=== PATIENT | female | born 1940 | race Caucasian/White ===

== ENCOUNTER 2022-05-22 11:30 | Observation (INO) | payer MEDICARE, SELFPAY ==
[2022-05-22] VITALS (11 sets, daily range): BP systolic 121–165; BP diastolic 60–99; PULSE 75–103; RESP 16–18; TEMP 36.4–37.3; O2SAT 91–96; BMI 29.4; BMI 36.6; BMI 30.1
--- NOTE | 2022-05-22 11:42 | EDS_ITS ---
HPI History of Present Illness Chief Complaint: Confusion Narrative Narrative: Patient presents with generalized weakness and confusion. She normally ambulates without a walker but today she had to use a walker just to barely balance herself, she is also more confused than normal per family, per family she has also been urinating quite a bit. No reported fevers or chills, she denies any symptoms. I can get a basic review of systems from her but not a full review of systems due to her confusion. [facility] Medical History (Updated 05/22/22 @ 15:[address] Jack Kramer MD) DVT (deep venous thrombosis) Hypertension Skin cancer Home Medications atorvastatin 40 mg tablet mg 05/22/22 [History Last Taken Unknown] docusate sodium 100 mg capsule (Colace) 100 mg PO DAILY 05/22/22 [History Last Taken Unknown] ergocalciferol (vitamin D2) 200 mcg/mL (8,000 unit/mL) oral drops 200 mcg PO DAILY 05/22/22 [History Last Taken Unknown] hydrochlorothiazide 12.5 mg capsule 12.5 mg PO DAILY 05/22/22 [History Last Taken Unknown] levothyroxine 88 mcg tablet 88 mcg PO DAILY 05/22/22 [History Last Taken Unknown] ulkstdeghzfv-iddbrdna-mbsayj tablet 1 tab PO DAILY 05/22/22 [History Last Taken Unknown] pantoprazole 40 mg tablet,delayed release mg PO 05/22/22 [History Last Taken Unknown] Allergy/AdvReac Type Severity Reaction Status Date / Time Sulfa (Sulfonamide Allergy NEEDS Verified 05/22/22 11:38 Antibiotics) FOLLOW-UP Family History (Updated 05/22/22 @ 12:09 by Sera Da Silva) Other Cancer Heart disease Surgical History (Updated 05/22/22 @ 12:08 by Sera Da Silva) H/O section H/O: hysterectomy History of cholecystectomy Social History Smoking Status: Never smoker ROS ROS ED ROS Narrative Past medical history: Reviewed Medications: Reviewed Social history: Noncontributory Review of systems: See below, otherwise unable General: No reported fever Cardiovascular: No chest pain Respiratory: She is denying difficulty breathing Gastrointestinal: She denies abdominal pain, no reported diarrhea Genitourinary: Urinary frequency Per EMS report Musculoskeletal: She denies any muscle aches or joint pain Neurological: Confusion but no focal deficit EXAM Physical Exam Narrative Exam Narrative: Physical exam General: Patient appears comfortable Head: Normocephalic, Atraumatic Eyes: Conjunctiva not pale ENT: Slightly dry mucous membranes Neck: Supple, Nontender, No lymphadenopathy Cardiovascular: Regular rate, Regular rhythm Respiratory: No distress, CTA bilaterally Abdomen: Soft, Nontender, Nondistended Back: Nontender, Normal Inspection. Negative for: CVA tenderness Extremities: Nontender, No edema Skin: Normal color, No rash Neurological: Alert to person, she does not know the year, she knows she is in the hospital but does not know which hospital she is in. She does not know which city she is in. No focal deficit. Const Vital Signs: 05/22/22 11:32 05/22/22 11:37 05/22/22 12:42 Temperature 97.6 F L 97.6 F L Temperature Source Temporal Temporal Pulse Rate 91 89 75 Respiratory Rate 17 16 17 Blood Pressure 138/71 H 138/71 H 143/89 H Blood Pressure Mean 93 93 107 Pulse Ox 95 95 95 Oxygen Delivery Method Room Air Room Air Nasal Cannula 05/22/22 12:37 05/22/22 13:37 05/22/22 14:26 Temperature 97.6 F L 97.6 F L 97.6 F L Temperature Source Temporal Temporal Temporal Pulse Rate 83 79 84 Respiratory Rate 18 18 18 Blood Pressure 165/72 H 121/83 H 147/60 H Blood Pressure Mean 103 95 89 Pulse Ox 91 96 95 Oxygen Delivery Method MDM MDM MDM Narrative Medical decision making narrative: A. Problems addressed Patient has weakness, I thought about a urinary tract infection but this is unfounded on urinalysis. I thought about electrolyte abnormalities and anemia but again these are not found. I thought about a possibility of a stroke, initially getting get this history but when the daughter came she tells me that every time she walks she is leaning to the right and she is dragging her right foot I examined the strength in the right foot again and it is similar to the left side and she certainly can hold it up for 5 seconds without dropping. An NIH stroke scale is 1 for confusion but nothing focal. However with her symptoms it may be reasonable to do a TIA work-up inpatient. She may also benefit from physical therapy. At this time daughter says that she is unlikely to be able to function at home so she can barely ambulate and is difficult to transfer. She is also confused and she does not know if she would ask for help every time she needs to go. B. Amount and/or complexity of the data 1. I talked with daughter in the room, CBC CMP read by me as normal. 2. Independent interpretation of test Telemetry: Sinus rhythm with a rate in the 80s and 90s without ectopy 3. I discussed with hospitalist for admission C. Risk of complications and/or morbidity Differential diagnosis: See above Lab Data Labs: Laboratory Results - last 24 hr 05/22/22 05/22/22 05/22/22 12:25 12:57 14:00 WBC 6.4 RBC 4.00 L Hgb 12.0 Hct 38.2 MCV 95.5 MCH 30.0 MCHC 31.4 L RDW Std Deviation 51.7 H RDW Coeff of Nakia 14.8 H Plt Count 196 MPV 11.8 Immature Gran % (Auto) 0.900 Neut % (Auto) 71.1 H Lymph % (Auto) 17.1 L [place] % (Auto) 10.6 H Eos % (Auto) 0.0 Baso % (Auto) 0.3 Absolute Neuts (auto) 4.5 Absolute Lymphs (auto) 1.09 Nucleated RBC % 0 Sodium 135 L Potassium 5.0 Chloride 101 Carbon Dioxide 30.0 Anion Gap 4 L BUN 10 Creatinine 0.96 Estim Creat Clear Calc 58.70 Est GFR (MDRD) Af Amer 72 Est GFR (MDRD) Non-Af 59 L BUN/Creatinine Ratio 10.4 Glucose 119 H Calcium 9.0 Total Bilirubin 0.70 AST 955 H ALT 250 H Alkaline Phosphatase 157 H Total Protein 7.4 Albumin 2.8 L Globulin 4.6 H Albumin/Globulin Ratio 0.6 L Urine Color Yellow Urine Clarity Sl. Cloudy Urine pH 6.5 Ur Specific [place] 1.020 Urine Protein 100 H Urine Glucose (UA) Normal Urine Ketones 5 H Urine Occult Blood 25 H Urine Nitrite Negative Urine Bilirubin Negative Urine Urobilinogen 1 H Ur Leukocyte Esterase Negative Urine RBC 0-5 SEEN Urine WBC 0 SEEN Ur Squamous Epith Cells 5-10 SEEN Urine Bacteria 1+ Urine Mucus 0 SEEN Radiography Diagnostic Testing: Clinical Impression(s) from Imaging Studies Chest X-Ray 05/22/22 12:23 IMPRESSION: No acute abnormality is seen. Electronically Signed: Brian Hagen MD at 12:50 EST , Brain CT 05/22/22 14:46 IMPRESSION: Chronic involutional changes of the brain. Electronically Signed: Brian Hagen MD at 15:11 EST , Chest x-ray interpreted by me as normal EKG Initial EKG: Comments: Sinus rhythm with PACs. Normal AK and QTc intervals. No ischemic changes. Interpreted by emergency doctor Discharge Plan Triage Chief Complaint: Confusion ED Provider: Jack Kramer Dx/Rx/DC Orders Clinical Impression: Weakness, Somnolence, Hypertension Prescriptions: No Action atorvastatin 40 mg Tablet levothyroxine 88 mcg Tablet 88 mcg PO DAILY pantoprazole 40 mg Tablet,Delayed Release (Dr/Ec) PO hydrochlorothiazide 12.5 mg Capsule 12.5 mg PO DAILY docusate sodium [Colace] 100 mg Capsule 100 mg PO DAILY ergocalciferol (vitamin D2) [Vitamin D2] 200 mcg/mL (8,000 unit/mL) Drops 200 mcg PO DAILY Centrum Silver Tablet 1 tab PO DAILY Primary Care Provider: Yoli Gant Referrals: Yoli Gant MD [Primary Care Provider] - Disposition Disposition: Acute Care Hospital [facility]
--- NOTE | 2022-05-22 12:23 | RAD_ITS ---
STUDY: X-RAY CHEST REASON FOR EXAM: Female, 81 years old. Confusion and unsteady gait. TECHNIQUE: Single AP portable view of the chest. COMPARISON: None. FINDINGS: The lungs are clear and expanded. There is no demonstrated pleural abnormality. Normal size heart. Normal mediastinum and duc. Normal visualized pulmonary arteries. There is atherosclerotic tortuosity of the aortic arch and descending thoracic aorta. There are diffuse degenerative changes of the visualized thoracic spine. There is degenerative osteoarthritis of the bilateral shoulders. There is no demonstrated abnormality of the visualized soft tissue structures of the upper abdomen. RAD/Chest 1 View (Portable) IMPRESSION: No acute abnormality is seen. Electronically Signed: Brian Hagen MD at 12:50 EST ,
[2022-05-22 12:49] LABS: ALB/GLOB Ratio 0.6 RATIO (0.9-2.4); AST(SGOT) 955 U/L (15-37); Alanine Aminotransfer ALT/SGPT 250 U/L (13-56); Albumin, Serum 2.8 g/dL (3.2-5.0); Alkaline Phosphatase 157 U/L (45-117); Anion Gap 4 (5-15); BUN 10 mg/dL (7-18); BUN/Creat Ratio 10.4 RATIO (10-20); Chloride 101 mmol/L (98-107); Creatinine, Serum 0.96 mg/dL (0.55-1.02); EST Glomerular Filtration Rate 59 mL/min (>60); Est Glom Filt Rate - Afr Amer 72 mL/min (>60); Globulin 4.6 g/dL (2.2-4.2); Glucose 119 mg/dL (74-106); Protein, Total 7.4 g/dL (6.4-8.2); Sodium Level 135 mmol/L (136-145)
[2022-05-22 13:07] LABS: Absolute Lymphocyte Count 1.09 X10^3/uL (0.83-4.51); Absolute Neutrophil Count 4.5 X10^3/uL (2.0-7.7); Basophil# 0.02 X10^3/uL; Basophil% 0.3 % (0-1); Hematocrit 38.2 % (37-47); Lymphocyte # 1.09 X10^3/ul (0.83-4.51); Lymphocyte % 17.1 % (19-41); Mean Corp Hgb Conc 31.4 g/dL (32-36); Mean Corpuscular Volume 95.5 fL (81-99); Mean Platelet Vol. 11.8 fl (6.2-12.0); Monocyte# 0.68 X10^3/uL; Monocyte% 10.6 % (0-10); NRBC Flagged by Analyzer 0 % (0-5); Neutrophil # 4.54 X10^3/uL (2.7-7.7); Neutrophil % 71.1 % (47-70); Platelet Count 196 K/mm3 (150-450); RBC Distribution Width CV 14.8 % (11.6-14.6); RBC Distribution Width SD 51.7 fl (35.1-43.9); White Blood Count 6.4 K/mm3 (4.4-11.0)
[2022-05-22 14:11] LABS: Mucous, Urine 0 SEEN /hpf (<or=2+); White Blood Cells 0 SEEN /hpf (0-5)
[2022-05-22 14:36] LABS: Color, Urine Yellow (Yellow); Glucose, Dipstick Normal (Normal); Ketone-Dipstick 5 mg/dl (Negative); Leukocyte Esterase-Dipstick Negative /ul (Negative); Nitrite-Dipstick Negative (Negative); Occult Blood-Urine 25 /ul (Negative); Protein-Dipstick 100 mg/dl (Negative); Urine Bilirubin Dipstick Negative (Negative); Urine Clarity Sl. Cloudy (Clear); Urine Urobilinogen 1 mg/dl (Normal); Urine pH 6.5 (5.0 - 8.0)
[2022-05-22 14:45] LABS: Bacteria 1+ /hpf (None Seen); Red Blood Cells-Urine 0-5 SEEN /hpf (0-5); Squamous Epithelial Cells - UA 5-10 SEEN /hpf (5-10)
--- NOTE | 2022-05-22 14:46 | CT_ITS ---
STUDY: CT BRAIN WITHOUT CONTRAST REASON FOR EXAM: Female, 81 years old. ms change RADIATION DOSAGE (If Supplied By Facility): CTDIvol = ( 44.99 ) mGy, DLP = ( 745.49 ) mGycm TECHNIQUE: Transaxial CT imaging of the brain was performed without administration of intravenous contrast material. Individualized dose optimization techniques were used for this CT. COMPARISON: No relevant priors. FINDINGS: Normal soft tissue structures. Normal calvarium. There is moderate cerebral atrophy with widening of the extra-axial spaces and ventricular dilatation. There are areas of decreased attenuation within the white matter tracts of the supratentorial brain, consistent with microvascular disease changes. Normal basal ganglia and thalami. Normal brainstem. Normal cerebellum. There is no intracranial hemorrhage. There are no findings of an acute ischemic infarction. Atherosclerotic calcification of the cavernous portions of the internal carotid arteries and vertebral arteries. Normal visualized paranasal sinuses. CT/Brain/Head without Contrast IMPRESSION: Chronic involutional changes of the brain. Electronically Signed: Brian Hagen MD at 15:11 EST ,
--- NOTE | 2022-05-22 15:57 | PCM.HP.STD ---
HPI - General General Date of Admission: 05/22/22 Date of Service: 05/22/22 HPI Narrative NASREEN MARMOLEJO, is a 81 F with a PMH as outlined who presents via the ED on 05/22/2022 with a complaint of confusion. SHe has just been getting weaker and more confused. She usually ambulates with a walker, but could barely even ambulate. She denied any fever, chills, cough, chest pain, palpitations, dizziness, nausea, vomiting or diarrhea. She had also been urinating frequently. Review of systems was otherwise negative. Vitals were temp of 97.6F, BP of 140/71, Pr of 84 and RR of 18. She was saturating at 92% on room air. CBC was essentially unremarkable as well as BMP. AST was elevated at 955 and ALT at 250 with ALP of 157. Urinalysis did show 1+ bacteria but no leukocyte esterase. CT of the brain showed chronic involutional changes and showed no acute intracranial pathology.CXR showed no acute cardiopulmonary pathology. Patient's other daughter also came in and said patient had been leaning more towards her right. NIH stroke scale was 1 on account of confusion. She has been admitted to be managed for altered mental status to rule out a stroke. [facility] Medical History (Updated 05/22/22 @ 16:[address] Char Snyder MD) DVT (deep venous thrombosis) Hypertension Skin cancer Home Medications atorvastatin 40 mg tablet 40 mg PO DAILY cholesterol 05/22/22 [History Last Taken 05/22/22] docusate sodium 100 mg capsule (Colace) 100 mg PO DAILY stool softener 05/22/22 [History Last Taken 05/22/22] ergocalciferol (vitamin D2) 200 mcg/mL (8,000 unit/mL) oral drops 200 mcg PO DAILY supplement 05/22/22 [History Last Taken 05/22/22] hydrochlorothiazide 12.5 mg capsule 12.5 mg PO DAILY bp 05/22/22 [History Last Taken 05/22/22] levothyroxine 88 mcg tablet 88 mcg PO DAILY thyroid 05/22/22 [History Last Taken 05/22/22] snnqxnfmilfi-fnodxppi-kufrmr tablet 1 tab PO DAILY supplement 05/22/22 [History Last Taken 05/22/22] pantoprazole 40 mg tablet,delayed release 40 mg PO DAILY GERD 05/22/22 [History Last Taken 05/22/22] Allergy/AdvReac Type Severity Reaction Status Date / Time Sulfa (Sulfonamide Allergy NEEDS Verified 05/22/22 11:38 Antibiotics) FOLLOW-UP Family History (Updated 05/22/22 @ 12:09 by Sera Da Silva) Other Cancer Heart disease Surgical History H/O section H/O: hysterectomy History of cholecystectomy Social History Smoking Status: Never smoker Vital Signs Vital Signs Vital Signs: 05/22/22 11:32 05/22/22 11:37 05/22/22 12:42 Temperature 97.6 F L 97.6 F L Temperature Source Temporal Temporal Pulse Rate 91 89 75 Respiratory Rate 17 16 17 Blood Pressure 138/71 H 138/71 H 143/89 H Blood Pressure Mean 93 93 107 Pulse Ox 95 95 95 Oxygen Delivery Method Room Air Room Air Nasal Cannula 05/22/22 12:37 05/22/22 13:37 05/22/22 14:26 Temperature 97.6 F L 97.6 F L 97.6 F L Temperature Source Temporal Temporal Temporal Pulse Rate 83 79 84 Respiratory Rate 18 18 18 Blood Pressure 165/72 H 121/83 H 147/60 H Blood Pressure Mean 103 95 89 Pulse Ox 91 96 95 Oxygen Delivery Method 05/22/22 14:31 Temperature Temperature Source Pulse Rate Respiratory Rate Blood Pressure 140/71 H Blood Pressure Mean 92 Pulse Ox 92 Oxygen Delivery Method Weight Weight: 181 lb 7.047 oz Body Mass Index (BMI) 36.6 Physical Exam Const alert, oriented x3 and no apparent distress General Appearance: cooperative HEENT normocephalic, head/scalp atraumatic, hearing grossly normal bilaterally and moist oral mucous membranes Mouth: oral and palatal mucosa normal Eyes PERRL, EOMs intact bilaterally and conjunctivae normal Neck no lymphadenopathy and supple Resp normal respiratory effort, no use of accessory muscles and clear to auscultation bilaterally Cardio regular rate, regular rhythm, S1 normal heart sound, S2 normal heart sound and no murmurs GI normal to inspection, nondistended, normoactive bowel sounds, soft to palpation and non-distended GI Narrative: mild RUQ tenderrness, no guarding or rebound tenderness Extremity normal to inspection, full ROM and no clubbing, cyanosis or edema Neuro oriented x3, CN's II-XII intact bilaterally, moves all extremities and no focal motor deficits Sensorium / Orientation: awake and alert Motor Exam: strength 5/5 throughout Psych affect normal Results Lab / Micro Data Result Diagrams: 05/22/22 12:57 05/22/22 12:25 Labs: Laboratory Results - last 24 hr 05/22/22 12:25: Sodium 135 L, Potassium 5.0, Chloride 101, Carbon Dioxide 30.0, Anion Gap 4 L, BUN 10, Creatinine 0.96, Estim Creat Clear Calc 58.70, Est GFR (MDRD) Af Amer 72, Est GFR (MDRD) Non-Af 59 L, BUN/Creatinine Ratio 10.4, Glucose 119 H, Calcium 9.0, Total Bilirubin 0.70, AST 955 H, ALT 250 H, Alkaline Phosphatase 157 H, Total Protein 7.4, Albumin 2.8 L, Globulin 4.6 H, Albumin/Globulin Ratio 0.6 L 05/22/22 12:57: WBC 6.4, RBC 4.00 L, Hgb 12.0, Hct 38.2, MCV 95.5, MCH 30.0, MCHC 31.4 L, RDW Std Deviation 51.7 H, RDW Coeff of Nakia 14.8 H, Plt Count 196, MPV 11.8, Immature Gran % (Auto) 0.900, Neut % (Auto) 71.1 H, Lymph % (Auto) 17.1 L, [place] % (Auto) 10.6 H, Eos % (Auto) 0.0, Baso % (Auto) 0.3, Absolute Neuts (auto) 4.5, Absolute Lymphs (auto) 1.09, Nucleated RBC % 0 05/22/22 14:00: Urine Color Yellow, Urine Clarity Sl. Cloudy, Urine pH 6.5, Ur Specific [place] 1.020, Urine Protein 100 H, Urine Glucose (UA) Normal, Urine Ketones 5 H, Urine Occult Blood 25 H, Urine Nitrite Negative, Urine Bilirubin Negative, Urine Urobilinogen 1 H, Ur Leukocyte Esterase Negative, Urine RBC 0-5 SEEN, Urine WBC 0 SEEN, Ur Squamous Epith Cells 5-10 SEEN, Urine Bacteria 1+, Urine Mucus 0 SEEN Radiology Impression Chest X-Ray 05/22/22 12:23 IMPRESSION: No acute abnormality is seen. Electronically Signed: Brian Hagen MD at 12:50 EST , Brain CT 05/22/22 14:46 IMPRESSION: Chronic involutional changes of the brain. Electronically Signed: Brian Hagen MD at 15:11 EST , Assessment & Plan Assessment/Plan (1) Weakness: (2) Altered mental status: PLAN: Plan #Altered mental status admit to PCU CT of the brain showed no acute intracranial pathology. Urinalysis showed 1+ bacteria but no leukocyte esterase. She has been urinating frequently and says she sometimes has associated dysuria patient was completely alert and communicative during my review. Chest x-ray also showed no evidence of infection. Hydrate gently with IV fluids. Start on IV ceftriaxone on account of 1+ bacteria in patient's confusion and frequency of urination. This may likely indicate a UTI. PT OT consult Fall precautions #Transaminitis Patient's liver enzymes are elevated with AST of 955, ALT of 250 and ALP of 157. Total bilirubin is a 0.7. Not clear if patient takes Tylenol and has may be taking a lot of it. Will check Tylenol level. Get CT of the abdomen with contrast she did have mild RUQ tenderness. She denies taking a lot of tylenol and says she only uses it occasionally for pain. Trend liver enzymes. Get hepatitis panel. No baseline liver enzymes in the EMR. Hold statin #Hyperlipidemia: Hold statin on account of elevated liver enzymes #-Hypothyroidism: Check TSH. On Synthroid 88 mcg daily. #Hypertension: On hydrochlorothiazide GERD: On PPI DVT prophylaxis: heparin Code status: full code Patient counseled extensively about different types of CODE STATUS including full code, DNR CCA and DNR CCA. Patient elects to be full code. Total [id number] time 17 minutes. Total time spent on evaluation and management of patient, reviewing chart and specialist notes, discussing plan with patient and his , discussion with nursing and ancillary staff as well as documentation: 75 mins Charges/Coding Visit Charges Inpatient E&M: 43102 Init Hosp L3 Procedures Hospitalists Procedures: 55827 Advncd Care Plan 30 Min
--- NOTE | 2022-05-22 16:22 | CT_ITS ---
STUDY: CT ABDOMEN WITH CONTRAST REASON FOR EXAM: Female, 81 years old. Elevated liver enzymes. RADIATION DOSAGE (If Supplied By Facility): CTDIvol = ( 13.99 ) mGy, DLP = ( 662.84 ) mGycm TECHNIQUE: Transaxial images were obtained post I.V. administration of IV 100mL Isovue-300, and without oral contrast. Sagittal and coronal images were reconstructed. Individualized dose optimization techniques were used for this CT. COMPARISON: None. FINDINGS: The visualized lung bases are unremarkable. The visualized portions of the heart are within normal limits. Hepatic steatosis without focal mass. The gallbladder is contracted. Normal spleen. Normal pancreas. Normal bilateral adrenal glands. There is a 3.9 cm exophytic cyst off the upper pole of an otherwise normal right kidney. Normal left kidney. Normal visualized ureters. Normal visualized stomach. Normal visualized small intestine. Normal visualized colon. There are surgical clips in the region of the appendix consistent with a prior appendectomy. There is diffuse atherosclerotic calcification of the abdominal aorta with elongation and tortuosity, but without a demonstrated aneurysm. Normal inferior vena cava. Normal retroperitoneum. Normal abdominal wall. Normal osseous structures. CT/Abdomen WITH IV Contrast IMPRESSION: 1. Hepatic steatosis without mass. 2. Status post cholecystectomy. 3. Right renal cyst. 4. Degenerative changes lumbar spine. 5. Atherosclerotic changes of the aorta without aneurysm or dissection. Electronically Signed: All Stanton DO at 16:52 EST Reading Location ID and State: [facility] Tel [phone], Service support ,
[2022-05-22 17:12] LABS: Thyroid Stim Hormone (TSH) 0.87 uIU/mL (0.358-3.74)
[2022-05-22] MEDS: 0.9% Normal Saline 1,000 ML 125 ML IV (18:11)
[2022-05-22] MEDS: 0.9% Saline Lock 10 ML Syringe IV (18:12)
[2022-05-22] MEDS: Ceftriaxone 1 GM/50 ML BAG IV (18:12)
[2022-05-22 18:31] LABS: Acetaminophen (Tylenol) Level < 2.0 ug/mL (10.0-30.0)
[2022-05-22 19:11] LABS: Hepatitis B Surface Antibody Non-Reactive; Hepatitis B Surface Antigen Non-Reactive (Nonreactive); Hepatitis C Antibody Non-Reactive (Nonreactive)
[2022-05-22] MEDS: Heparin Injection (Vial) 5,000 UNIT/ML VIAL 5000 UNIT SC (22:13)
[2022-05-23] MEDS: 0.9% Normal Saline 1,000 ML 125 ML IV (02:51)
[2022-05-23 04:15] VITALS: BP 136/54; PULSE 83; RESP 16; TEMP 37.2; O2SAT 99
[2022-05-23] MEDS: Levothyroxine 88 MCG Tablet PO (05:52)
[2022-05-23] MEDS: Heparin Injection (Vial) 5,000 UNIT/ML VIAL 5000 UNIT SC ×3 (05:52→22:35)
[2022-05-23 05:54] LABS: Absolute Lymphocyte Count 1.61 X10^3/uL (0.83-4.51); Absolute Neutrophil Count 2.4 X10^3/uL (2.0-7.7); Basophil# 0.03 X10^3/uL; Basophil% 0.6 % (0-1); Hematocrit 36.7 % (37-47); Hemoglobin 11.7 g/dL (12.0-15.0); Lymphocyte # 1.61 X10^3/ul (0.83-4.51); Mean Corp Hgb Conc 31.9 g/dL (32-36); Mean Corpuscular Hgb 30.2 pg (27.0-32.0); Mean Corpuscular Volume 94.8 fL (81-99); Mean Platelet Vol. 11.8 fl (6.2-12.0); Monocyte# 0.69 X10^3/uL; Monocyte% 14.6 % (0-10); NRBC Flagged by Analyzer 0 % (0-5); Neutrophil # 2.35 X10^3/uL (2.7-7.7); Neutrophil % 49.5 % (47-70); Platelet Count 181 K/mm3 (150-450); RBC Distribution Width CV 15.2 % (11.6-14.6); RBC Distribution Width SD 52.6 fl (35.1-43.9); Red Blood Count 3.87 M/mm3 (4.2-5.4); White Blood Count 4.7 K/mm3 (4.4-11.0)
[2022-05-23 06:36] LABS: ALB/GLOB Ratio 0.7 RATIO (0.9-2.4); AST(SGOT) 761 U/L (15-37); Alanine Aminotransfer ALT/SGPT 239 U/L (13-56); Albumin, Serum 2.5 g/dL (3.2-5.0); Alkaline Phosphatase 140 U/L (45-117); Anion Gap 8 (5-15); BUN 11 mg/dL (7-18); BUN/Creat Ratio 12.7 RATIO (10-20); Calcium,Total 8.4 mg/dL (8.5-10.1); Chloride 105 mmol/L (98-107); Creatinine, Serum 0.87 mg/dL (0.55-1.02); EST Glomerular Filtration Rate 66 mL/min (>60); Est Glom Filt Rate - Afr Amer 80 mL/min (>60); Estimated Creatinine Clearance 43.05 ml/min; Globulin 3.8 g/dL (2.2-4.2); Glucose 100 mg/dL (74-106); Potassium 3.2 mmol/L (3.5-5.1); Protein, Total 6.3 g/dL (6.4-8.2); Sodium Level 142 mmol/L (136-145)
[2022-05-23 09:46] VITALS: BP 109/71; PULSE 79; RESP 18; TEMP 37; O2SAT 95
[2022-05-23] MEDS: Docusate Sodium 100 MG Capsule PO (09:48)
[2022-05-23] MEDS: Ceftriaxone 1 GM/50 ML BAG IV (09:48)
[2022-05-23] MEDS: Pantoprazole Sodium 40 MG Tablet PO (09:48)
[2022-05-23] MEDS: hydroCHLOROthiazide 12.5mg 12.5 MG PO (09:48)
--- NOTE | 2022-05-23 11:05 | PN_ITS ---
Subjective Subjective Patient seen and examined. She had no active complaints and had a good night. She denied any fever, chills, cough, chest pain, palpitations, nausea, vomiting or diarrhea. Review of systems otherwise negative.She was eating breakfast at time of my review. Objective Data Objective Data Vital Signs: Vital Signs Temp Pulse Resp BP Pulse Ox O2 Del Method 98.6 F 79 18 109/71 95 Room Air 05/23/22 09:46 05/23/22 09:46 05/23/22 09:46 05/23/22 09:46 05/23/22 09:46 05/23/22 09:46 Oxygen Delivery Method Room Air Weight: 175 lb 7.807 oz Body Mass Index (BMI) 30.1 Intake & Output: Intake and Output for Last 24 Hours 05/21/22 05/22/22 05/23/22 23:59 23:59 23:59 Intake Total 790 / 790 2049 Output Total 300 / 300 Balance 490 / 490 2049 Lab / Micro Data Result Diagrams: 05/23/22 05:26 05/23/22 05:26 Labs: Laboratory Results - last 24 hr 05/22/22 12:25: Sodium 135 L, Potassium 5.0, Chloride 101, Carbon Dioxide 30.0, Anion Gap 4 L, BUN 10, Creatinine 0.96, Estim Creat Clear Calc 58.70, Est GFR (MDRD) Af Amer 72, Est GFR (MDRD) Non-Af 59 L, BUN/Creatinine Ratio 10.4, Glucose 119 H, Calcium 9.0, Total Bilirubin 0.70, AST 955 H, ALT 250 H, Alkaline Phosphatase 157 H, Total Protein 7.4, Albumin 2.8 L, Globulin 4.6 H, Albumin/Globulin Ratio 0.6 L 05/22/22 12:25: TSH 0.87 05/22/22 12:57: WBC 6.4, RBC 4.00 L, Hgb 12.0, Hct 38.2, MCV 95.5, MCH 30.0, MCHC 31.4 L, RDW Std Deviation 51.7 H, RDW Coeff of Nakia 14.8 H, Plt Count 196, MPV 11.8, Immature Gran % (Auto) 0.900, Neut % (Auto) 71.1 H, Lymph % (Auto) 17.1 L, Hopkins % (Auto) 10.6 H, Eos % (Auto) 0.0, Baso % (Auto) 0.3, Absolute Neuts (auto) 4.5, Absolute Lymphs (auto) 1.09, Nucleated RBC % 0 05/22/22 14:00: Urine Color Yellow, Urine Clarity Sl. Cloudy, Urine pH 6.5, Ur Specific [place] 1.020, Urine Protein 100 H, Urine Glucose (UA) Normal, Urine Ketones 5 H, Urine Occult Blood 25 H, Urine Nitrite Negative, Urine Bilirubin Negative, Urine Urobilinogen 1 H, Ur Leukocyte Esterase Negative, Urine RBC 0-5 SEEN, Urine WBC 0 SEEN, Ur Squamous Epith Cells 5-10 SEEN, Urine Bacteria 1+, Urine Mucus 0 SEEN 05/22/22 17:14: Acetaminophen < 2.0 L 05/22/22 17:14: Hep Bs Antigen Non-Reactive, Hep Bs Antibody Non-Reactive, Hepatitis C Antibody Non-Reactive 05/23/22 05:26: WBC 4.7, RBC 3.87 L, Hgb 11.7 L, Hct 36.7 L, MCV 94.8, MCH 30.2, MCHC 31.9 L, RDW Std Deviation 52.6 H, RDW Coeff of Ankia 15.2 H, Plt Count 181, MPV 11.8, Immature Gran % (Auto) 1.300 H, Neut % (Auto) 49.5, Lymph % (Auto) 34.0, Hopkins % (Auto) 14.6 H, Eos % (Auto) 0.0, Baso % (Auto) 0.6, Absolute Neuts (auto) 2.4, Absolute Lymphs (auto) 1.61, Nucleated RBC % 0 05/23/22 05:26: Sodium 142, Potassium 3.2 L, Chloride 105, Carbon Dioxide 29.0, Anion Gap 8, BUN 11, Creatinine 0.87, Estim Creat Clear Calc 43.05, Est GFR (MDRD) Af Amer 80, Est GFR (MDRD) Non-Af 66, BUN/Creatinine Ratio 12.7, Glucose 100, Calcium 8.4 L, Total Bilirubin 0.30, AST 761 H, ALT 239 H, Alkaline Phosphatase 140 H, Total Protein 6.3 L, Albumin 2.5 L, Globulin 3.8, Albumin/Globulin Ratio 0.7 L Radiography Diagnostic Testing: Radiology Impression Chest X-Ray 05/22/22 12:23 IMPRESSION: No acute abnormality is seen. Electronically Signed: Brian Hagen MD at 12:50 EST , Brain CT 05/22/22 14:46 IMPRESSION: Chronic involutional changes of the brain. Electronically Signed: Brian Hagen MD at 15:11 EST , Abdomen CT 05/22/22 16:22 IMPRESSION: 1. Hepatic steatosis without mass. 2. Status post cholecystectomy. 3. Right renal cyst. 4. Degenerative changes lumbar spine. 5. Atherosclerotic changes of the aorta without aneurysm or dissection. Electronically Signed: All Stanton DO at 16:52 EST Reading Location ID and State: [address] [place] [address] Tel [phone], Service support , Physical Exam Const alert, oriented x3 and no apparent distress General Appearance: cooperative HEENT normocephalic, head/scalp atraumatic, hearing grossly normal bilaterally and moist oral mucous membranes Eyes PERRL, EOMs intact bilaterally and conjunctivae normal Neck no lymphadenopathy, supple and no JVD Resp normal respiratory effort, no use of accessory muscles and clear to auscultation bilaterally Cardio regular rate, regular rhythm, S1 normal heart sound, S2 normal heart sound and no murmurs GI normal to inspection, nondistended, normoactive bowel sounds, soft to palpation, non-tender and non-distended Extremity normal to inspection, full ROM, normal capillary refill and no clubbing, cyanosis or edema Skin General Skin Exam: no breakdown Neuro oriented x3, CN's II-XII intact bilaterally, moves all extremities and no focal motor deficits Sensorium / Orientation: awake and alert Motor Exam: strength 5/5 throughout Psych thought process normal and affect normal Appearance: appropriate Assessment & Plan Assessment/Plan (1) Weakness: (2) Altered mental status: PLAN: Plan #Altered mental status * resolved. Patient was actually alert and oriented at time of admission. * CT of the brain showed no acute intracranial pathology. * Urinalysis showed 1+ bacteria but no leukocyte esterase. She has been urinating frequently and says she sometimes has associated dysuria * Chest x-ray also showed no evidence of infection. * being treated for UTI due to dysuria. On IV ceftriaxone * PT OT consult * Fall precautions * I have a low suspicion for stroke as patient is alert and oriented x3 and able to move all extremities and has no focal neurological deficit. * #Transaminitis * Liver enzymes have been trending down with AST trending down from the 900s to 760 and ALT trending down to 239. * Tylenol level was less than 0.2. CT of the abdomen showed fatty liver and showed a contracted gallbladder. * Hepatitis panel is negative so far. * May be due to fatty liver. Has is trending down we will continue monitoring. * statin on hold * #Hyperlipidemia: Hold statin on account of elevated liver enzymes #-Hypothyroidism: On Synthroid 88 mcg daily. TSH is within normal limits at 0.87. #Hypertension: On hydrochlorothiazide GERD: On PPI DVT prophylaxis: heparin Code status: full code * Charges/Coding Visit Charges Inpatient E&M: 61925 Subs Hosp L2
--- NOTE | 2022-05-23 11:55 | CASEMGMT ---
Social Work Pt indicated at admission that he has LW/POA, and can bring in the documents. Suzi Moore is listed as POA in the admitting tipple oiler. IRA Watt
--- NOTE | 2022-05-23 13:10 | NURSING ---
This RN updated pt's daughter, Suzi via phone.
--- NOTE | 2022-05-23 13:24 | CASEMGMT ---
Therapy is recommending halfway facility for patient. SW met with patient. Introduced self and role at [facility]. SW explained therapy is recommending halfway facility short term for rehab. Patient was agreeable. SW asked patient if she would like a list or if she would like SW to call her daughter. Patient told SW to call her daughter. SW called patient's daughter Lilly. SW introduced self and role at [facility]. SW explained therapy's recommendations. Patient's daughter said patient has been to [facility] in the past and she really enjoyed the facility and people. That would be the first choice. SW let her know SW will make the referral, but patient will stay at [facility] likely through the weekend as insurance will have to approve her first. MAIKEL can call her back once Jason gives SW an answer. MAIKEL sent a referral to [facility] via [employer]. MAIKEL also called Hailey and told her about referral. SW also let her know MAIKEL will send PT/OT evaluations once they are in the computer. Plan: halfway facility pending acceptance and insurance approval. Traci Zayas HYDROGEN BRAZE FURNACE OPERATOR YADIRA
--- NOTE | 2022-05-23 14:25 | CASEMGMT ---
MAIKEL sent PT/OT to [facility] via [facility]. Traci Zayas PUBLIC HEALTH EPIDEMIOLOGIST DEBT COLLECTOR
--- NOTE | 2022-05-23 15:35 | CASEMGMT ---
MAIKEL was notified that [facility] accepted patient. Await pre-cert. MIAKEL will notify patient's daughter. Plan: d/c to [facility] pending insurance approval. Traci MAY
[2022-05-23 15:46] VITALS: BP 150/73; PULSE 70; RESP 18; TEMP 37; O2SAT 97
--- NOTE | 2022-05-23 15:56 | CASEMGMT ---
RN VIKAS NOTE; Intro role of CM to patient and [facility] form explained re: Observation status for treatment of altered mental status, UTI.? Explained hospitalization will be paid per?her insurance policy for Outpatient billing?and condition will continue to be evaluated for Inpt necessity. Also let pt know that [facility] sends paper in the billing packet with their phone number if questions arise. Discussed Pharmacy section of [facility] form and self administered medication guideline.? Pt verbalizes understanding and does not have further questions. ?Form signed, copy made and placed in chart, and original given to pt. Aleida CASTANEDA RN CM
--- NOTE | 2022-05-23 16:34 | CASEMGMT ---
[facility] accepted patient. Patient will need pre-cert. SW called patient's daughter and let her know this information. SW also let her know that patient will be here through the weekend as insurance will need to approve it. Plan: [facility] pending pre-cert. Traci MAY
[2022-05-23 21:46] VITALS: BP 172/71; PULSE 79; RESP 17; TEMP 36.7; O2SAT 93
[2022-05-24] VITALS (7 sets, daily range): BP systolic 127–174; BP diastolic 66–89; PULSE 73–89; RESP 16–18; TEMP 36.5–37; O2SAT 95–97
[2022-05-24] MEDS: hydrALAZINE 20 MG/ML Vial 10 MG IV (02:34)
[2022-05-24] MEDS: Levothyroxine 88 MCG Tablet PO (05:02)
[2022-05-24] MEDS: Heparin Injection (Vial) 5,000 UNIT/ML VIAL 5000 UNIT SC ×3 (05:02→20:31)
[2022-05-24 07:15] LABS: Absolute Neutrophil Count 2.3 X10^3/uL (2.0-7.7); Basophil# 0.02 X10^3/uL; Basophil% 0.4 % (0-1); Eosinophil# 0.01 X10^3/uL; Eosinophils% 0.2 % (0-5); Hematocrit 38.4 % (37-47); Hemoglobin 12.2 g/dL (12.0-15.0); Lymphocyte % 38.8 % (19-41); Mean Corp Hgb Conc 31.8 g/dL (32-36); Mean Corpuscular Hgb 30.3 pg (27.0-32.0); Mean Corpuscular Volume 95.5 fL (81-99); Mean Platelet Vol. 11.8 fl (6.2-12.0); Monocyte# 0.65 X10^3/uL; Monocyte% 13.3 % (0-10); NRBC Flagged by Analyzer 0 % (0-5); Neutrophil # 2.28 X10^3/uL (2.7-7.7); Neutrophil % 46.5 % (47-70); Platelet Count 171 K/mm3 (150-450); RBC Distribution Width CV 14.9 % (11.6-14.6); RBC Distribution Width SD 52.3 fl (35.1-43.9); Red Blood Count 4.02 M/mm3 (4.2-5.4); White Blood Count 4.9 K/mm3 (4.4-11.0)
[2022-05-24 07:55] LABS: ALB/GLOB Ratio 0.6 RATIO (0.9-2.4); AST(SGOT) 550 U/L (15-37); Alanine Aminotransfer ALT/SGPT 197 U/L (13-56); Albumin, Serum 2.5 g/dL (3.2-5.0); Alkaline Phosphatase 158 U/L (45-117); Anion Gap 8 (5-15); BUN 11 mg/dL (7-18); BUN/Creat Ratio 13.9 RATIO (10-20); Calcium,Total 9.1 mg/dL (8.5-10.1); Chloride 104 mmol/L (98-107); Creatinine, Serum 0.79 mg/dL (0.55-1.02); EST Glomerular Filtration Rate 74 mL/min (>60); Est Glom Filt Rate - Afr Amer 89 mL/min (>60); Estimated Creatinine Clearance 37.45 ml/min; Glucose 111 mg/dL (74-106); Potassium 3.3 mmol/L (3.5-5.1); Protein, Total 6.5 g/dL (6.4-8.2); Sodium Level 141 mmol/L (136-145)
[2022-05-24] MEDS: Pantoprazole Sodium 40 MG Tablet PO (08:45)
[2022-05-24] MEDS: hydroCHLOROthiazide 12.5mg 12.5 MG PO (08:45)
[2022-05-24] MEDS: Docusate Sodium 100 MG Capsule PO (08:45)
[2022-05-24] MEDS: Ceftriaxone 1 GM/50 ML BAG IV (08:46)
--- NOTE | 2022-05-24 09:43 | PN_ITS ---
Subjective Subjective Patient seen and examined. She had no complaints and was comfortably eating breakfast. She denied any fever, chills, cough, chest pain, palpitaitons, dizziness, nausea, vomiting or diarrhea. Review of systems was otherwise negative. She has remained hemodynamically stable. Objective Data Objective Data Vital Signs: Vital Signs Temp Pulse Resp BP Pulse Ox O2 Del Method 97.7 F L 89 18 149/81 H 97 Room Air 05/24/22 08:45 05/24/22 08:45 05/24/22 08:45 05/24/22 08:45 05/24/22 08:45 05/24/22 08:45 Oxygen Delivery Method Room Air Weight: 175 lb 7.807 oz Body Mass Index (BMI) 30.1 Intake & Output: Intake and Output for Last 24 Hours 05/22/22 05/23/22 05/24/22 23:59 23:59 23:59 Intake Total 790 / 790 2550 / 2550 Output Total 300 / 300 200 / 200 Balance 490 / 490 2550 / 2550 -200 / -200 Lab / Micro Data Result Diagrams: 05/24/22 06:57 05/24/22 06:57 Labs: Laboratory Results - last 24 hr 05/24/22 06:57: WBC 4.9, RBC 4.02 L, Hgb 12.2, Hct 38.4, MCV 95.5, MCH 30.3, MCHC 31.8 L, RDW Std Deviation 52.3 H, RDW Coeff of Nakia 14.9 H, Plt Count 171, MPV 11.8, Immature Gran % (Auto) 0.800, Neut % (Auto) 46.5 L, Lymph % (Auto) 38.8, Simpson % (Auto) 13.3 H, Eos % (Auto) 0.2, Baso % (Auto) 0.4, Absolute Neuts (auto) 2.3, Absolute Lymphs (auto) 1.90, Nucleated RBC % 0 05/24/22 06:57: Sodium 141, Potassium 3.3 L, Chloride 104, Carbon Dioxide 29.0, Anion Gap 8, BUN 11, Creatinine 0.79, Estim Creat Clear Calc 37.45, Est GFR (MDRD) Af Amer 89, Est GFR (MDRD) Non-Af 74, BUN/Creatinine Ratio 13.9, Glucose 111 H, Calcium 9.1, Total Bilirubin 0.30, AST 550 H, ALT 197 H, Alkaline Phosphatase 158 H, Total Protein 6.5, Albumin 2.5 L, Globulin 4.0, Albumin/Globulin Ratio 0.6 L Micro: Microbiology 05/22/22 18:45 Urine, Clean Catch Urine Culture - Preliminary Culture exhibits no growth. Physical Exam Const alert, oriented x3 and no apparent distress General Appearance: cooperative HEENT normocephalic, head/scalp atraumatic, hearing grossly normal bilaterally and moist oral mucous membranes Eyes PERRL, EOMs intact bilaterally and conjunctivae normal Neck no lymphadenopathy, supple and no JVD Lymph Lymphatic: no lymphadenopathy noted Resp normal respiratory effort, normal air movement, no use of accessory muscles and clear to auscultation bilaterally Cardio regular rate, regular rhythm, S1 normal heart sound, S2 normal heart sound and no murmurs GI normal to inspection, nondistended, normoactive bowel sounds, soft to palpation, non-tender and non-distended Extremity normal to inspection, full ROM, normal capillary refill and no clubbing, cyanosis or edema Skin General Skin Exam: no breakdown Neuro oriented x3, CN's II-XII intact bilaterally, moves all extremities and no focal motor deficits Sensorium / Orientation: awake and alert Motor Exam: strength 5/5 throughout Psych thought process normal and affect normal Psych Narrative: confused Appearance: appropriate Assessment & Plan Assessment/Plan (1) Weakness: (2) Altered mental status: PLAN: Plan #Altered mental status * resolved. * CT of the brain showed no acute intracranial pathology. * Urinalysis showed 1+ bacteria but no leukocyte esterase. She has been urinating frequently and says she sometimes has associated dysuria * Chest x-ray also showed no evidence of infection. * being treated for UTI due to dysuria. On IV ceftriaxone * PT OT on board. * Fall precautions * I have a low suspicion for stroke as patient is alert and oriented x3 and able to move all extremities and has no focal neurological deficit. * #Transaminitis * liver enzymes continue to trend downwards; AST is 550 today and ALT is 197. ALP is 158. total bilirubin is 0.3 * Tylenol level was less than 0.2. CT of the abdomen showed fatty liver and showed a contracted gallbladder. * Hepatitis panel is negative so far. * May be due to fatty liver. * statin on hold * #Hyperlipidemia: Hold statin on account of elevated liver enzymes #-Hypothyroidism: On Synthroid 88 mcg daily. TSH is within normal limits at 0.87. #Hypertension: On hydrochlorothiazide. IV hydralazine prn GERD: On PPI DVT prophylaxis: heparin Code status: full code * * Disposition: awaiting placement. Accepted at SNF. Precert pending Charges/Coding Visit Charges Inpatient E&M: 45527 Subs Hosp L2
[2022-05-24] MEDS: Potassium Chloride Oral Tablet 20 MEQ 40 MEQ PO (12:01)
[2022-05-25 03:26] VITALS: BP 163/82; PULSE 81; RESP 16; TEMP 36.6; O2SAT 93
[2022-05-25] MEDS: Heparin Injection (Vial) 5,000 UNIT/ML VIAL 5000 UNIT SC ×3 (06:24→21:03)
[2022-05-25] MEDS: Levothyroxine 88 MCG Tablet PO (06:24)
[2022-05-25 07:12] VITALS: O2SAT 94
[2022-05-25 07:13] LABS: Absolute Lymphocyte Count 2.52 X10^3/uL (0.83-4.51); Basophil# 0.03 X10^3/uL; Basophil% 0.5 % (0-1); Eosinophil# 0.03 X10^3/uL; Eosinophils% 0.5 % (0-5); Hematocrit 40.6 % (37-47); Hemoglobin 12.7 g/dL (12.0-15.0); Lymphocyte # 2.52 X10^3/ul (0.83-4.51); Lymphocyte % 41.2 % (19-41); Mean Corp Hgb Conc 31.3 g/dL (32-36); Mean Corpuscular Hgb 29.9 pg (27.0-32.0); Mean Corpuscular Volume 95.5 fL (81-99); Mean Platelet Vol. 11.5 fl (6.2-12.0); Monocyte# 0.55 X10^3/uL; NRBC Flagged by Analyzer 0 % (0-5); Neutrophil # 2.95 X10^3/uL (2.7-7.7); Neutrophil % 48.3 % (47-70); Platelet Count 192 K/mm3 (150-450); RBC Distribution Width SD 52.5 fl (35.1-43.9); Red Blood Count 4.25 M/mm3 (4.2-5.4); White Blood Count 6.1 K/mm3 (4.4-11.0)
[2022-05-25 07:42] LABS: ALB/GLOB Ratio 0.6 RATIO (0.9-2.4); AST(SGOT) 397 U/L (15-37); Alanine Aminotransfer ALT/SGPT 165 U/L (13-56); Albumin, Serum 2.7 g/dL (3.2-5.0); Alkaline Phosphatase 167 U/L (45-117); Anion Gap 10 (5-15); BUN 13 mg/dL (7-18); BUN/Creat Ratio 16.8 RATIO (10-20); Calcium,Total 9.7 mg/dL (8.5-10.1); Chloride 104 mmol/L (98-107); Creatinine, Serum 0.77 mg/dL (0.55-1.02); EST Glomerular Filtration Rate 76 mL/min (>60); Est Glom Filt Rate - Afr Amer 92 mL/min (>60); Estimated Creatinine Clearance 37.45 ml/min; Globulin 4.4 g/dL (2.2-4.2); Glucose 119 mg/dL (74-106); Potassium 3.7 mmol/L (3.5-5.1); Protein, Total 7.1 g/dL (6.4-8.2); Sodium Level 140 mmol/L (136-145)
[2022-05-25 09:00] VITALS: BP 147/67; PULSE 72; RESP 18; TEMP 36.4; O2SAT 95
[2022-05-25] MEDS: Ceftriaxone 1 GM/50 ML BAG IV (10:44)
[2022-05-25] MEDS: Docusate Sodium 100 MG Capsule PO (10:45)
[2022-05-25] MEDS: hydroCHLOROthiazide 12.5mg 12.5 MG PO (10:45)
[2022-05-25] MEDS: Pantoprazole Sodium 40 MG Tablet PO (10:45)
[2022-05-25] MEDS: 0.9% Saline Lock 10 ML Syringe IV (10:48)
--- NOTE | 2022-05-25 11:10 | PN_ITS ---
Subjective Subjective Patient seen and examined. She feels well and has no complaints. She was eating breakfast. She had an uneventful night and review systems otherwise negative. She is awaiting placement. Objective Data Objective Data Vital Signs: Vital Signs Temp Pulse Resp BP Pulse Ox O2 Del Method 97.8 F 81 16 163/82 H 94 Room Air 05/25/22 03:26 05/25/22 03:26 05/25/22 03:26 05/25/22 03:26 05/25/22 07:12 05/25/22 07:12 Oxygen Delivery Method Room Air Weight: 175 lb 7.807 oz Body Mass Index (BMI) 30.1 Intake & Output: Intake and Output for Last 24 Hours 05/23/22 05/24/22 05/26/22 23:59 23:59 00:59 Intake Total 2550 / 2550 890 / 890 500 / 500 Output Total 1400 / 1400 1400 / 1400 Balance 2550 / 2550 -510 / -510 -900 / -900 Lab / Micro Data Result Diagrams: 05/25/22 06:30 05/25/22 06:30 Labs: Laboratory Results - last 24 hr 05/25/22 06:30: WBC 6.1, RBC 4.25, Hgb 12.7, Hct 40.6, MCV 95.5, MCH 29.9, MCHC 31.3 L, RDW Std Deviation 52.5 H, RDW Coeff of Nakia 15.0 H, Plt Count 192, MPV 11.5, Immature Gran % (Auto) 0.500, Neut % (Auto) 48.3, Lymph % (Auto) 41.2 H, Power % (Auto) 9.0, Eos % (Auto) 0.5, Baso % (Auto) 0.5, Absolute Neuts (auto) 3.0, Absolute Lymphs (auto) 2.52, Nucleated RBC % 0 05/25/22 06:30: Sodium 140, Potassium 3.7, Chloride 104, Carbon Dioxide 26.0, Anion Gap 10, BUN 13, Creatinine 0.77, Estim Creat Clear Calc 37.45, Est GFR (MDRD) Af Amer 92, Est GFR (MDRD) Non-Af 76, BUN/Creatinine Ratio 16.8, Glucose 119 H, Calcium 9.7, Total Bilirubin 0.40, AST 397 H, ALT 165 H, Alkaline Phosphatase 167 H, Total Protein 7.1, Albumin 2.7 L, Globulin 4.4 H, Albumin/Globulin Ratio 0.6 L Micro: Microbiology 05/22/22 18:45 Urine, Clean Catch Urine Culture - Final Culture exhibits no growth. Physical Exam Const alert, oriented x3 and no apparent distress Constitutional Narrative: confused General Appearance: cooperative HEENT normocephalic, head/scalp atraumatic, hearing grossly normal bilaterally and moist oral mucous membranes Eyes PERRL, EOMs intact bilaterally and conjunctivae normal Neck no lymphadenopathy, supple and no JVD Lymph Lymphatic: no lymphadenopathy noted and no lymphedema noted Resp normal respiratory effort, normal air movement, no use of accessory muscles and clear to auscultation bilaterally Cardio regular rate, regular rhythm, S1 normal heart sound, S2 normal heart sound and no murmurs GI normal to inspection, nondistended, normoactive bowel sounds, soft to palpation, non-tender and non-distended Extremity normal to inspection, full ROM, normal capillary refill and no clubbing, cyanosis or edema Skin General Skin Exam: no breakdown Neuro oriented x3, CN's II-XII intact bilaterally, moves all extremities and no focal motor deficits Neuro Narrative: confused Sensorium / Orientation: awake and alert Motor Exam: strength 5/5 throughout Psych thought process normal and affect normal Psych Narrative: confused Appearance: appropriate Assessment & Plan Assessment/Plan (1) Weakness: (2) Altered mental status: PLAN: Plan #Altered mental status * resolved. * CT of the brain showed no acute intracranial pathology. * Urinalysis showed 1+ bacteria but no leukocyte esterase. She has been urinating frequently and says she sometimes has associated dysuria * Chest x-ray also showed no evidence of infection. * being treated for UTI due to dysuria. On IV ceftriaxone * PT OT on board. * Fall precautions * I have a low suspicion for stroke as patient is alert and oriented x3 and able to move all extremities and has no focal neurological deficit. * #Transaminitis * liver enzymes continue to trend downwards; AST is 550 today and ALT is 197. ALP is 158. total bilirubin is 0.3 * Tylenol level was less than 0.2. CT of the abdomen showed fatty liver and showed a contracted gallbladder. * Hepatitis panel is negative so far. * May be due to fatty liver. * statin on hold * #Hyperlipidemia: Hold statin on account of elevated liver enzymes #-Hypothyroidism: On Synthroid 88 mcg daily. TSH is within normal limits at 0.87. #Hypertension: On hydrochlorothiazide. IV hydralazine prn GERD: On PPI DVT prophylaxis: heparin Code status: full code * * Disposition: awaiting placement. Accepted at SNF. Precert pending Charges/Coding Visit Charges Inpatient E&M: 89771 Subs Hosp L2
[2022-05-25 15:00] VITALS: BP 140/62; PULSE 72; RESP 18; TEMP 36.3; O2SAT 95
[2022-05-25 20:45] VITALS: BP 150/77; PULSE 72; RESP 18; TEMP 36.9; O2SAT 93
[2022-05-26 03:10] VITALS: BP 136/86; PULSE 76; RESP 18; TEMP 36.8; O2SAT 93
[2022-05-26] MEDS: Heparin Injection (Vial) 5,000 UNIT/ML VIAL 5000 UNIT SC (05:35)
[2022-05-26] MEDS: Levothyroxine 88 MCG Tablet PO (05:35)
[2022-05-26 06:13] LABS: Absolute Lymphocyte Count 1.96 X10^3/uL (0.83-4.51); Absolute Neutrophil Count 3.5 X10^3/uL (2.0-7.7); Basophil# 0.03 X10^3/uL; Basophil% 0.5 % (0-1); Eosinophil# 0.07 X10^3/uL; Eosinophils% 1.1 % (0-5); Hematocrit 38.2 % (37-47); Lymphocyte # 1.96 X10^3/ul (0.83-4.51); Lymphocyte % 31.7 % (19-41); Mean Corp Hgb Conc 31.4 g/dL (32-36); Mean Corpuscular Hgb 29.7 pg (27.0-32.0); Mean Corpuscular Volume 94.6 fL (81-99); Mean Platelet Vol. 11.9 fl (6.2-12.0); Monocyte% 9.7 % (0-10); NRBC Flagged by Analyzer 0 % (0-5); Neutrophil # 3.47 X10^3/uL (2.7-7.7); Neutrophil % 56.2 % (47-70); Platelet Count 178 K/mm3 (150-450); RBC Distribution Width CV 14.7 % (11.6-14.6); RBC Distribution Width SD 51.5 fl (35.1-43.9); Red Blood Count 4.04 M/mm3 (4.2-5.4); White Blood Count 6.2 K/mm3 (4.4-11.0)
[2022-05-26 06:29] LABS: ALB/GLOB Ratio 0.7 RATIO (0.9-2.4); AST(SGOT) 279 U/L (15-37); Alanine Aminotransfer ALT/SGPT 137 U/L (13-56); Albumin, Serum 2.6 g/dL (3.2-5.0); Alkaline Phosphatase 156 U/L (45-117); Anion Gap 7 (5-15); BUN 14 mg/dL (7-18); Calcium,Total 9.7 mg/dL (8.5-10.1); Chloride 101 mmol/L (98-107); Creatinine, Serum 0.93 mg/dL (0.55-1.02); EST Glomerular Filtration Rate 61 mL/min (>60); Est Glom Filt Rate - Afr Amer 74 mL/min (>60); Estimated Creatinine Clearance 40.27 ml/min; Globulin 3.9 g/dL (2.2-4.2); Glucose 102 mg/dL (74-106); Potassium 3.6 mmol/L (3.5-5.1); Protein, Total 6.5 g/dL (6.4-8.2); Sodium Level 139 mmol/L (136-145)
--- NOTE | 2022-05-26 08:58 | PN.HOSP_ITS ---
Reason for Visit Reason for Visit: Diagnoses Altered mental status, unspecified (05/22/22) Weakness (05/22/22) Subjective Subjective Feels well. Denies complaints. Objective Data Objective Data Vital Signs: Vital Signs Temp Pulse Resp BP Pulse Ox O2 Del Method 36.8 C 76 18 136/86 H 93 Room Air 05/26/22 03:10 05/26/22 03:10 05/26/22 03:10 05/26/22 03:10 05/26/22 03:10 05/26/22 03:10 Oxygen Delivery Method Room Air Weight: 79.6 kg Body Mass Index (BMI) 30.1 Intake & Output: Intake and Output for Last 24 Hours 05/24/22 05/25/22 05/26/22 22:59 23:59 23:59 Intake Total 240 / 240 Output Total 1200 / 1200 Balance -960 / -960 Lab / Micro Data Result Diagrams: 05/26/22 05:30 05/26/22 05:30 Labs: Laboratory Results - last 24 hr 05/26/22 05:30: WBC 6.2, RBC 4.04 L, Hgb 12.0, Hct 38.2, MCV 94.6, MCH 29.7, MCHC 31.4 L, RDW Std Deviation 51.5 H, RDW Coeff of Nakia 14.7 H, Plt Count 178, MPV 11.9, Immature Gran % (Auto) 0.800, Neut % (Auto) 56.2, Lymph % (Auto) 31.7, [place] % (Auto) 9.7, Eos % (Auto) 1.1, Baso % (Auto) 0.5, Absolute Neuts (auto) 3.5, Absolute Lymphs (auto) 1.96, Nucleated RBC % 0 05/26/22 05:30: Sodium 139, Potassium 3.6, Chloride 101, Carbon Dioxide 31.0, Anion Gap 7, BUN 14, Creatinine 0.93, Estim Creat Clear Calc 40.27, Est GFR (MDRD) Af Amer 74, Est GFR (MDRD) Non-Af 61, BUN/Creatinine Ratio 15.0, Glucose 102, Calcium 9.7, Total Bilirubin 0.40, AST 279 H, ALT 137 H, Alkaline Phosphatase 156 H, Total Protein 6.5, Albumin 2.6 L, Globulin 3.9, Albumin/Globulin Ratio 0.7 L Micro: Microbiology 05/22/22 18:45 Urine, Clean Catch Urine Culture - Final Culture exhibits no growth. Physical Exam Const alert and no apparent distress Resp normal respiratory effort, no retractions, no use of accessory muscles and clear to auscultation bilaterally Cardio regular rate, regular rhythm, S1 normal heart sound and S2 normal heart sound GI normal to inspection, nondistended, normoactive bowel sounds, soft to palpation, non-tender and non-distended Psych affect normal Assessment & Plan Assessment/Plan (1) Altered mental status: PLAN: * resolved. * CT of the brain showed no acute intracranial pathology. * Urinalysis showed 1+ bacteria but no leukocyte esterase. She has been urinating frequently and says she sometimes has associated dysuria * Chest x-ray also showed no evidence of infection. * being treated for UTI due to dysuria. On IV ceftriaxone * PT OT on board. * Fall precautions * I have a low suspicion for stroke as patient is alert and oriented x3 and able to move all extremities and has no focal neurological deficit. (2) Weakness: PLAN: PT OT DC to SNF today. (3) Transaminitis: PLAN: improving acute hepatitis profile negative continue to hold statins unclear etiology. Follow up as outpt. If still elevated, consider GI follow up. PLAN: Plan Chronic conditions: * hyperlipidemia: Hold statin on account of elevated liver enzymes * Hypothyroidism: On Synthroid 88 mcg daily. TSH is within normal limits at 0.87. * Hypertension: On hydrochlorothiazide. IV hydralazine prn * GERD: On PPI DVT prophylaxis: heparin Code status: full code Disposition: SNF today.
[2022-05-26 08:59] VITALS: BP 145/77; PULSE 83; RESP 16; TEMP 36.8; O2SAT 94
[2022-05-26] MEDS: Pantoprazole Sodium 40 MG Tablet PO (09:03)
[2022-05-26] MEDS: Docusate Sodium 100 MG Capsule PO (09:04)
[2022-05-26] MEDS: hydroCHLOROthiazide 12.5mg 12.5 MG PO (09:04)
[2022-05-26] MEDS: Ceftriaxone 1 GM/50 ML BAG IV (09:05)
--- NOTE | 2022-05-26 09:52 | CASEMGMT ---
MAIKEL sent updates to [facility] via [employer]. MAIKEL also called Hailey with [facility] to see if they heard anything from insurance and they have not. MAIKEL let Hailey know SW sent updates via [employer]. Plan: [facility] pending pre-cert. Traci Zayas METAL WINDOW FRAME MAKER YADIRA
--- NOTE | 2022-05-26 10:02 | CASEMGMT ---
MAIKEL received a call from Hailey and she received authorization. MAIKEL notified physician. Traci MAY
--- NOTE | 2022-05-26 10:33 | TREXTCAR_ITS ---
Diet Diet Order/Speech Therapy: 05/22/22 16:47 Diet: Cardiac - Heart Healthy Food consistency:: Regular Liquid Consistency:: Regular/Thin Routine Orders/Code Status Routine Lab Work: - (CMP in 1 week) Code Status: Full Code Therapies Weight Bearing: Full weight bearing Physical Therapy: Eval and Treat Occupational Therapy: Eval and Treat Problem/Diagnosis (1) Altered mental status: Status: Acute Code(s): R41.82 - Altered mental status, unspecified Plan: * resolved. * CT of the brain showed no acute intracranial pathology. * Urinalysis showed 1+ bacteria but no leukocyte esterase. She has been urinating frequently and says she sometimes has associated dysuria * Chest x-ray also showed no evidence of infection. * being treated for UTI due to dysuria. On IV ceftriaxone * PT OT on board. * Fall precautions * I have a low suspicion for stroke as patient is alert and oriented x3 and able to move all extremities and has no focal neurological deficit. (2) Weakness: Status: Acute Code(s): R53.1 - Weakness Plan: PT OT DC to SNF today. (3) Transaminitis: Status: Acute Code(s): R74.01 - Elevation of levels of liver transaminase levels Plan: improving acute hepatitis profile negative continue to hold statins unclear etiology. Follow up as outpt. If still elevated, consider GI follow up. Plan Chronic conditions: * hyperlipidemia: Hold statin on account of elevated liver enzymes * Hypothyroidism: On Synthroid 88 mcg daily. TSH is within normal limits at 0.87. * Hypertension: On hydrochlorothiazide. IV hydralazine prn * GERD: On PPI DVT prophylaxis: heparin Code status: full code Disposition: SNF today. Allergies/Procedures Done in Hospital Allergies Sulfa (Sulfonamide Antibiotics) Allergy (Verified 05/22/22 11:38) NEEDS FOLLOW-UP Type of Care/Length of Stay Estimated LOS: Convalescent Care Less Than 30 days Type of Care Needed: Skilled Rehab Potential: Fair Prognosis: Fair Additional Orders/Day of Discharge Day of Discharge: 05/26/22 Discharge Plan Admission Admit Date/Time: 05/22/22 16:17 Primary Reason for Your Visit: change in mental status. Attending Provider: Mohan Groves Primary Care Provider: Yoli Gant Consulting Providers: Char Snyder Discharge Orders/Prescriptions Prescriptions: Continued levothyroxine 88 mcg Tablet 88 mcg PO DAILY pantoprazole 40 mg Tablet,Delayed Release (Dr/Ec) 40 mg PO DAILY hydrochlorothiazide 12.5 mg Capsule 12.5 mg PO DAILY docusate sodium [Colace] 100 mg Capsule 100 mg PO DAILY ergocalciferol (vitamin D2) 200 mcg/mL (8,000 unit/mL) Drops 200 mcg PO DAILY lwyujqznwzhq-cfphihsq-gcqxfx Tablet 1 tab PO DAILY Discontinued atorvastatin 40 mg Tablet 40 mg PO DAILY Referrals / Follow Up: Yoli Gant MD [Primary Care Provider] - Within 2 Weeks Disposition Disposition (needs filled in before D/C Order can be placed): Detention Facility
--- NOTE | 2022-05-26 10:36 | DS.PCM_ITS ---
Providers Date of Admission: 05/22/22 Primary Care Physician: Dr. Yoli Gant MD Reason For Visit: ALTERED MENTAL STATUS Diagnosis Discharge Diagnosis (1) Altered mental status: Status: Acute Code(s): R41.82 - Altered mental status, unspecified Plan: * resolved. * CT of the brain showed no acute intracranial pathology. * Urinalysis showed 1+ bacteria but no leukocyte esterase. She has been urinating frequently and says she sometimes has associated dysuria * Chest x-ray also showed no evidence of infection. * being treated for UTI due to dysuria. On IV ceftriaxone * PT OT on board. * Fall precautions * I have a low suspicion for stroke as patient is alert and oriented x3 and able to move all extremities and has no focal neurological deficit. (2) Weakness: Status: Acute Code(s): R53.1 - Weakness Plan: PT OT DC to SNF today. (3) Transaminitis: Status: Acute Code(s): R74.01 - Elevation of levels of liver transaminase levels Plan: improving acute hepatitis profile negative continue to hold statins unclear etiology. Follow up as outpt. If still elevated, consider GI follow up. Plan Chronic conditions: * hyperlipidemia: Hold statin on account of elevated liver enzymes * Hypothyroidism: On Synthroid 88 mcg daily. TSH is within normal limits at 0.87. * Hypertension: On hydrochlorothiazide. IV hydralazine prn * GERD: On PPI DVT prophylaxis: heparin Code status: full code Disposition: SNF today. Medications at Discharge Home Medications docusate sodium 100 mg capsule (Colace) 100 mg PO DAILY stool softener 05/22/22 ergocalciferol (vitamin D2) 200 mcg/mL (8,000 unit/mL) oral drops 200 mcg PO DAILY supplement 05/22/22 hydrochlorothiazide 12.5 mg capsule 12.5 mg PO DAILY bp 05/22/22 levothyroxine 88 mcg tablet 88 mcg PO DAILY thyroid 05/22/22 vrhuvpjxdbfq-iblvxkcy-tefvbl tablet 1 tab PO DAILY supplement 05/22/22 pantoprazole 40 mg tablet,delayed release 40 mg PO DAILY GERD 05/22/22 Hospital Course Operations None Procedures None Summary of Care Provided Minutes Spent on Discharge: 32 Weight / BMI Weight Weight: 79.6 kg Body Mass Index (BMI) 30.1 ABG / Lab / Microbiology Data Result Diagrams: 05/26/22 05:30 05/26/22 05:30 Laboratory: Laboratory Results - last 24 hr 05/26/22 05:30: WBC 6.2, RBC 4.04 L, Hgb 12.0, Hct 38.2, MCV 94.6, MCH 29.7, MCHC 31.4 L, RDW Std Deviation 51.5 H, RDW Coeff of Nakia 14.7 H, Plt Count 178, MPV 11.9, Immature Gran % (Auto) 0.800, Neut % (Auto) 56.2, Lymph % (Auto) 31.7, [place] % (Auto) 9.7, Eos % (Auto) 1.1, Baso % (Auto) 0.5, Absolute Neuts (auto) 3.5, Absolute Lymphs (auto) 1.96, Nucleated RBC % 0 05/26/22 05:30: Sodium 139, Potassium 3.6, Chloride 101, Carbon Dioxide 31.0, Anion Gap 7, BUN 14, Creatinine 0.93, Estim Creat Clear Calc 40.27, Est GFR (MDRD) Af Amer 74, Est GFR (MDRD) Non-Af 61, BUN/Creatinine Ratio 15.0, Glucose 102, Calcium 9.7, Total Bilirubin 0.40, AST 279 H, ALT 137 H, Alkaline Phosphatase 156 H, Total Protein 6.5, Albumin 2.6 L, Globulin 3.9, Albumin/Globulin Ratio 0.7 L Microbiology: Microbiology 05/22/22 18:45 Urine, Clean Catch Urine Culture - Final Culture exhibits no growth. Meaningful Use Info Meaningful Use Diagnoses (Choose all that apply): None applicable Discharge Plan Admission Admit Date/Time: 05/22/22 16:17 Primary Reason for Your Visit: change in mental status. Attending Provider: Mohan Groves Primary Care Provider: Yoli Gant Consulting Providers: Char Snyder Discharge Orders/Prescriptions Prescriptions: Continued levothyroxine 88 mcg Tablet 88 mcg PO DAILY pantoprazole 40 mg Tablet,Delayed Release (Dr/Ec) 40 mg PO DAILY hydrochlorothiazide 12.5 mg Capsule 12.5 mg PO DAILY docusate sodium [Colace] 100 mg Capsule 100 mg PO DAILY ergocalciferol (vitamin D2) 200 mcg/mL (8,000 unit/mL) Drops 200 mcg PO DAILY ogkmisvcbvmf-cdlsuscq-dpgpys Tablet 1 tab PO DAILY Discontinued atorvastatin 40 mg Tablet 40 mg PO DAILY Referrals / Follow Up: Yoli Gant MD [Primary Care Provider] - Within 2 Weeks Disposition Disposition (needs filled in before D/C Order can be placed): [facility] Charges/Coding Visit Charges Inpatient E&M: 75258 Disch Hosp >30min
[2022-05-26 10:40] VITALS: BP 145/77; PULSE 83; RESP 16; TEMP 36.8; O2SAT 94
--- NOTE | 2022-05-26 10:51 | PHA.DC.MR ---
Pharmacy Service has performed discharge medication reconciliation for this patient. The patient's discharge medication list was reviewed for discrepancies and discrepancies were resolved. Home Medications docusate sodium 100 mg capsule (Colace) 100 mg PO DAILY stool softener 05/22/22 ergocalciferol (vitamin D2) 200 mcg/mL (8,000 unit/mL) oral drops 200 mcg PO DAILY supplement 05/22/22 hydrochlorothiazide 12.5 mg capsule 12.5 mg PO DAILY bp 05/22/22 levothyroxine 88 mcg tablet 88 mcg PO DAILY thyroid 05/22/22 redxobyxkgme-qcgcdsio-zlqqic tablet 1 tab PO DAILY supplement 05/22/22 pantoprazole 40 mg tablet,delayed release 40 mg PO DAILY GERD 05/22/22
--- NOTE | 2022-05-26 10:57 | CASEMGMT ---
MAIKEL notified patient that she was approved and will go to [facility] today. MAIKEL sent orders and d/c med list to [facility] via [employer]. MAIKEL tried to call patient's daughter Lilly and there was no answer and voice mailbox was full. MAIKEL will try again. Traci Zayas OVERLOCK OPERATOR YADIRA
--- NOTE | 2022-05-26 11:35 | CASEMGMT ---
Patient tested positive for COVID. MAIKEL called [facility] and spoke with Lien letting her know patient is COVID positive. Lien spoke with appropriate staff and patient can still go to [facility]. MAIKEL notified [employer] char[employer]. MAIKEL attempted to call patient's daughter again with no luck. MAIKEL called [facility] and arranged for patient to get picked up at 130 via wheelchair van. Plan: d/c to [facility] under skilled level of care on a PASRR as patient was observation status in the hospital. [facility] will transport via wheelchair van. Traci Zayas WINDSHIELD WIPER REPAIRER YADIRA
--- NOTE | 2022-05-26 12:30 | CASEMGMT ---
MAIKEL has attempted to call patient's daughter 3 times with no answer and voice mailbox is full. MAIKEL will continue to try. Traci Zayas MSW YADIRA
--- NOTE | 2022-05-26 13:19 | NURSING ---
This RN called report to [facility] @ [facility].
--- NOTE | 2022-05-26 14:14 | CASEMGMT ---
MAIKEL was able to reach patient's daughter Lilly. MAIKEL let her know patient's insurance approved patient and she went to [facility] today at 130. She thanked MAIKEL for letting her know. Plan: d/c to [facility] under skilled level of care. Traci MAY
== END 2022-05-26 10:36 ==
LOC: ED 15:56 → PCU 16:25
PROVIDERS: Admitting Provider Student in an Organized Health Care Education/Training Program; Emergency Provider Emergency Medicine; PCP Internal Medicine
DX: R41.82 Altered mental status, unspecified (principal); I10 Essential (primary) hypertension; R53.1 Weakness; Z79.899 Other long term (current) drug therapy; Z79.890 Hormone replacement therapy; E78.5 Hyperlipidemia, unspecified; E03.9 Hypothyroidism, unspecified; K21.9 Gastro-esophageal reflux disease without esophagitis; Z86.718 Personal history of other venous thrombosis and embolism; Z20.822 Contact with and (suspected) exposure to COVID-19; R30.0 Dysuria; R35.0 Frequency of micturition
CPT/HCPCS: 36415; 70450; 71045; 74160; 80053; 80329; 81001; 84443; 85025; 86706; 86803; 87086; 87340; 87426; 93005; 96361; 96365; 96366; 96372; 96375; 97110; 97162; 97166; 97530; 97535; 99221; 99285; J7030; P9612; Q9967; A4216; G0378; G0480

== ENCOUNTER 2025-03-06 11:00 | Emergency (ER) | payer MEDICARE, SELFPAY ==
[2025-03-06] VITALS (32 sets, daily range): BP systolic 99–130; BP diastolic 62–87; PULSE 70–141; RESP 14–29; TEMP 36.4–37.3; O2SAT 89–99; BMI 25.7; BMI 26.3
--- NOTE | 2025-03-06 12:54 | ED.RN ---
pt came to ed via [facility] em[facility]. was pre registered but not triaged due other pt being triaged at same time. pt called to do triage and not present in ed area.
--- NOTE | 2025-03-06 12:57 | ED.RN ---
found pt in br. triaged.
--- NOTE | 2025-03-06 14:51 | EX.ED.DYSGE1 ---
HPI History of Present Illness Chief Complaint: Confusion [facility] Medical History Hypertension Hypertension DVT (deep venous thrombosis) Skin cancer Home Medications ?Medication ?Instructions ?Recorded ?Last Taken ?Type hydrochlorothiazide 12.5 mg capsule 12.5 mg PO DAILY bp 05/22/22 05/22/22 History levothyroxine 88 mcg tablet 88 mcg PO DAILY thyroid 05/22/22 05/22/22 History rpecgzyhhvik-uxitssjd-xgxaas tablet 1 tab PO DAILY supplement 05/22/22 05/22/22 History pantoprazole 40 mg tablet,delayed 40 mg PO DAILY GERD 05/22/22 05/22/22 History release atorvastatin 40 mg tablet (Lipitor) 40 mg PO DAILY 03/06/25 Unknown History cholecalciferol (vitamin D3) 25 25 mcg PO DAILY 03/06/25 Unknown History mcg (1,000 unit) capsule meclizine 25 mg tablet 25 mg PO TID PRN dizziness or 03/06/25 Unknown History vertigo oxybutynin chloride 5 mg 5 mg PO DAILY BLADDER 03/06/25 Unknown History tablet,extended release 24 hr Allergy/AdvReac Type Severity Reaction Status Date / Time Sulfa (Sulfonamide Allergy NEEDS Verified 03/06/25 13:00 Antibiotics) FOLLOW-UP ondansetron (From Zofran) AdvReac Nausea Verified 03/06/25 13:01 Family History Other Cancer Heart disease Surgical History H/O section H/O: hysterectomy History of cholecystectomy Social History Smoking Status: Never smoker EXAM Physical Exam Const Vital Signs: 03/06/25 11:01 03/06/25 12:58 03/06/25 14:03 Temperature 97.5 F L 98.3 F 99.1 F Temperature Source Temporal Oral Oral Pulse Rate 120 H 97 116 H Respiratory Rate 20 H 18 15 Blood Pressure 123/82 H 114/76 111/64 Blood Pressure Mean 95 88 79 Pulse Ox 98 99 95 Oxygen Delivery Method Room Air Room Air Room Air 03/06/25 14:10 03/06/25 14:15 03/06/25 14:30 Temperature Temperature Source Pulse Rate 103 H 127 H 108 H Respiratory Rate 15 18 22 H Blood Pressure 99/74 Blood Pressure Mean 83 Pulse Ox 98 Oxygen Delivery Method 03/06/25 14:45 03/06/25 15:00 03/06/25 15:00 Temperature 99.1 F Temperature Source Oral Pulse Rate 105 H 117 H 108 H Respiratory Rate 21 H 21 H 25 H Blood Pressure 120/79 120/79 Blood Pressure Mean 92 92 Pulse Ox 97 Oxygen Delivery Method Room Air 03/06/25 15:09 03/06/25 15:15 03/06/25 15:30 Temperature Temperature Source Pulse Rate 110 H 106 H Respiratory Rate 18 29 H Blood Pressure Blood Pressure Mean Pulse Ox Oxygen Delivery Method Room Air 03/06/25 15:45 03/06/25 15:46 03/06/25 16:00 Temperature Temperature Source Pulse Rate 101 H 117 H Respiratory Rate 15 21 H Blood Pressure 116/79 Blood Pressure Mean 91 Pulse Ox 97 98 97 Oxygen Delivery Method 03/06/25 16:15 03/06/25 16:30 03/06/25 16:46 Temperature Temperature Source Pulse Rate 113 H 110 H 141 H Respiratory Rate 17 21 H 20 H Blood Pressure 123/76 H 103/78 Blood Pressure Mean 91 85 Pulse Ox 96 98 89 Oxygen Delivery Method 03/06/25 17:00 03/06/25 17:00 03/06/25 17:15 Temperature Temperature Source Pulse Rate 117 H 118 H 118 H Respiratory Rate 24 H 17 17 Blood Pressure 130/72 H 130/72 H Blood Pressure Mean 91 87 Pulse Ox 95 99 98 Oxygen Delivery Method Room Air 03/06/25 17:30 03/06/25 17:45 03/06/25 18:00 Temperature Temperature Source Pulse Rate 118 H 117 H 138 H Respiratory Rate 14 19 H 19 H Blood Pressure Blood Pressure Mean Pulse Ox 96 96 Oxygen Delivery Method 03/06/25 18:08 03/06/25 18:15 03/06/25 18:30 Temperature Temperature Source Pulse Rate 120 H 115 H 99 Respiratory Rate 20 H 26 H 21 H Blood Pressure 124/76 H 126/87 H 130/65 H Blood Pressure Mean 91 101 83 Pulse Ox 96 Oxygen Delivery Method 03/06/25 18:40 03/06/25 18:45 03/06/25 18:49 Temperature Temperature Source Pulse Rate 71 70 71 Respiratory Rate 16 21 H 25 H Blood Pressure 111/62 110/78 Blood Pressure Mean 76 88 Pulse Ox 97 97 96 Oxygen Delivery Method 03/06/25 19:00 03/06/25 19:15 Temperature Temperature Source Pulse Rate 74 Respiratory Rate 16 Blood Pressure 99/85 H 106/77 Blood Pressure Mean 92 87 Pulse Ox 96 Oxygen Delivery Method [facility] Narrative Medical decision making narrative: HISTORY OF PRESENT ILLNESS: Chief complaint: Confusion 84-year-old female presents with concern for diffuse weakness, confusion and concern for UTI. History of hypothyroidism, GERD, hyperlipidemia and hypertension. Patient is accompanied by her daughter today state patient has had intermittent confusion for the last 2 days. Patient noted a fall 2 days ago with no obvious injury. No head trauma endorsed. They are concerned she may have a UTI as she is present similar in the past with UTI and confusion. Patient denies chest pain, shortness of breath, abdominal pain, vomiting. She denies dysuria, urgency or frequency. Denies any extremity injuries. REVIEW OF SYSTEMS: Pertinent positives: As per HPI Pertinent negatives: As per HPI PHYSICAL EXAM: Nursing triage notes reviewed, Vital signs reviewed Constitutional: please see main [facility] HENT: MMM Eyes: Pupils equal round and reactive to light, Extraocular muscles intact Neck: No stridor, no JVD, full neck ROM Lungs: Clear to auscultation, No wheezing or rales. No increased work of breathing, no conversational dyspnea, no accessory muscle use, no nasal flaring. No respiratory distress noted Heart: Regular rate and rhythm, No murmurs, No rubs and No gallops, 2+ distal pulses (radial, femoral, posterior tibial) in all extremities Abdomen: Soft, there is no tenderness, rigidity, rebound or guarding, no obvious peritoneal signs, no palpable pulsatile abdominal masses, no auscultated abdominal bruit : No CVAT Extremities: No edema Neuro: Alert, oriented to person place and time essentially at baseline. No new focal neurological deficits, cranial nerves II through XII intact, 5/5 strength in all present extremities. Intact sensation to light touch in all present extremities, 2+ reflexes bilateral patella tendons. Skin: No rash or lesions noted MEDICAL DECISION MAKING: Chief Complaint: please see HPI External records reviewed: Reviewed prior ED note from 2022. This time patient was alert to person but not to time or place. Factors affecting care: n as per HPI Social determinants of health: Elderly History obtained from others: EMS, family Consults: Cardiology (Dr. Carney) MDM Narrative: Patient was seen approximately hours after initial Arrival secondary to high acuity, high-volume patient was initially tachycardic, tachypneic she is afebrile. She is saturate 99% room air. Initial exam without focal neurologic deficits. Primary secondary trauma surgery. Without evidence of trauma I considered the following differential diagnosis: Dehydration, UTI, metabolic or infectious encephalopathy, ICH, CVA, sepsis I obtained a broad lab and imaging workup to further determine if the patient was suffering from a life-threatening etiology. Sepsis order set used Initial resuscitated with normal saline ALL IMAGES (IF OBTAINED) HAVE BEEN PERSONALLY REVIEWED AND INTERPRETED BY MYSELF. CBC without leukocytosis, severe anemia, no thrombocytopenia. No coagulopathy BMP without significant Cindy normalities, no acute kidney injury, Lactate is wnl indicating no end-organ hypoperfusion and/or hypoxia. Liver function test elevated however similar to baseline Urinalysis negative for sign of UTI Flu positive I have personally reviewed the patient's chest x-ray. Chest x-ray is unremarkable for pulmonary edema, pneumothorax, pneumonia or focal cardiopulmonary abnormality. EKG with A-fib with RVR, no STEMI, normal QTc The patient's presentation is likely secondary to influenza A induced A-fib. Given the patient A-fib show rapid ventricular sponsor can from a grams of IV metoprolol which improved heart rate. Repeat EKG showed conversion to normal sinus rhythm, left ax deviation, normal intervals, no STEMI During the patient's ED visit while on telemetry monitoring showed approximately 4-second sinus pause. She is asymptomatic during this time Patient was ambulated without significant hypoxia. I discussed the case with cardiology. Asked recommendations in terms of new onset A-fib for rate control and possible anticoagulation. Discussed with Dr. Carney. Recommended starting patient on Eliquis. Recommended patient continues to be asymptomatic on telemetry she is appropriate discharge home despite sinus pauses this is likely sequela of conversion from A-fib with RVR to normal sinus rhythm in the presence of metoprolol. Recommending holding metoprolol given sinus pauses The patient and/or family, caregivers express understanding. The patient and/or family, caregivers agrees with the plan. Shared decision making: I will have a discussion with the patient and or visitors regarding risk/benefits of further testing or admission. They will be made aware of of the risk/benefits inherent in this decision they will be given the opportunity to voice understanding. Total critical care time today provided was at least 0 minutes. This excludes separately billable procedures. Critical care time (if documented) is secondary to the patient having high probability of clinically significant/life threatening deterioration in the patient's condition which required my urgent intervention. Impression: 1. Transient alteration awareness 2. Influenza A 3. New onset atrial fibrillation Dispo: Discharge This note was generated with [employer] dictation software. It may contain incorrect words, spelling, and punctuation that were not noted in review of the chart prior to signing. Lab Data Labs: Laboratory Results - last 24 hr 03/06/25 03/06/25 14:20 15:20 WBC 7.2 RBC 4.29 Hgb 13.8 Hct 41.6 MCV 97.0 MCH 32.2 H MCHC 33.2 RDW Std Deviation 50.5 H RDW Coeff of Nakia 14.1 Plt Count 145 L MPV 12.7 H Immature Gran % (Auto) 0.700 Neut % (Auto) 56.3 Lymph % (Auto) 30.1 [place] % (Auto) 12.5 H Eos % (Auto) 0.0 Baso % (Auto) 0.4 Absolute Neuts (auto) 4.1 Absolute Lymphs (auto) 2.17 Nucleated RBC % 0 PT 13.0 INR 1.0 APTT 32.3 Sodium 141 Potassium 3.5 Chloride 100 Carbon Dioxide 29.5 H Anion Gap 11 BUN 13 Creatinine 1.12 Estim Creat Clear Calc 35.14 L Est GFR (MDRD) Non-Af 48 L BUN/Creatinine Ratio 11.4 Glucose 118 H Lactic Acid 1.6 Calcium 9.1 Total Bilirubin 0.64 AST 128 H ALT 50 H Alkaline Phosphatase 216 H Total Protein 6.6 Albumin 3.2 L Globulin 3.5 Albumin/Globulin Ratio 0.9 Urine Color Yellow Urine Clarity Sl Cloudy Urine pH 6.5 Ur Specific [place] 1.010 Urine Protein 30 H Urine Glucose (UA) Normal Urine Ketones Negative Urine Occult Blood 10 H Urine Nitrite Negative Urine Bilirubin Negative Urine Urobilinogen Normal Ur Leukocyte Esterase 25 H Urine RBC 0 SEEN Urine WBC 5-10 SEEN Ur Squamous Epith Cells 0-5 SEEN Urine Bacteria 1+ Urine Mucus 0 SEEN Radiography Diagnostic Testing: Clinical Impression(s) from Imaging Studies Brain CT 03/06/25 15:09 IMPRESSION: No acute intracranial abnormality. Paranasal sinus disease as above. Bilateral mastoid effusions. Reading Location: [facility] Chest X-Ray 03/06/25 15:36 IMPRESSION: No acute cardiopulmonary abnormalities. Reading Location: [facility] Discharge Plan Triage Chief Complaint: Confusion ED Provider: Stephen Ferreira Dx/Rx/DC Orders Prescriptions: No Action levothyroxine 88 mcg Tablet 88 mcg PO DAILY pantoprazole 40 mg Tablet,Delayed Release (Dr/Ec) 40 mg PO DAILY hydrochlorothiazide 12.5 mg Capsule 12.5 mg PO DAILY vstjujrnstvh-xikoalcg-rjfjea Tablet 1 tab PO DAILY atorvastatin [Lipitor] 40 mg tablet 40 mg PO DAILY cholecalciferol (vitamin D3) 25 mcg (1,000 unit) capsule 25 mcg PO DAILY meclizine 25 mg tablet 25 mg PO TID PRN (Reason: dizziness or vertigo) oxybutynin chloride 5 mg tablet extended release 24hr 5 mg PO DAILY Primary Care Provider: Yoli Gant Referrals: Yoli Gant MD [Primary Care Provider, Internal Medicine] Print Language: Thai
--- NOTE | 2025-03-06 15:09 | CT_ITS ---
PROCEDURE: BRAIN/HEAD WITHOUT CONTRAST 03/06/2025 REASON FOR EXAM: FALL, CONFUSION R/O ICH TECHNIQUE: Procedure Code: CTBR Modality: CT Procedure: BRAIN/HEAD WITHOUT CONTRAST Coronal and Sagittal reconstruction series were provided. One or more dose reduction techniques were used (e.g., Automated exposure control, adjustment of the mA and/or kV according to patient size, use of iterative reconstruction technique. RADIATION DOSE SUMMARY: CTDlvol: 47 mGy DLP: 819 mGycm COMPARISON: 05/22/2022. FINDINGS: Satapiac-fo-qasxvy global parenchymal atrophy. Periventricular white matter hypodensity likely representing moderate chronic microvascular ischemia. No evidence of acute hemorrhage or infarction. No extra-axial blood or fluid collections. Mild pansinus mucosal thickening. Bilateral mastoid effusions. Calvarial vault and skull base are intact. CT/Brain/Head without Contrast IMPRESSION: No acute intracranial abnormality. Paranasal sinus disease as above. Bilateral mastoid effusions. [facility]
--- NOTE | 2025-03-06 15:09 | EKG12_ITS ---
Test Reason : Blood Pressure : */* mmHG Vent. Rate : 116 BPM Atrial Rate : * BPM P-R Int : * ms QRS Dur : 76 ms QT Int : 300 ms P-R-T Axes : * -22 57 degrees QTcB Int : 417 ms Atrial fibrillation with rapid ventricular response Abnormal ECG Confirmed by Sky Carney (Flora), editor book BRIAN CASTRO ([id number]) on 03/07/2025 11:08:01 AM Also confirmed by Sky Carney (), editor book BRIAN CASTRO ([id number]) on 03/08/2025 10:48:52 AM Also confirmed by Sky Carney ([id number]), editor book BRIAN CASTRO ([id number]) on 03/08/2025 10:58:33 AM Referred By: HANK Confirmed By: Sky Carney
[2025-03-06 15:23] LABS: Hematocrit 41.6 % (37-47); Hemoglobin 13.8 g/dL (12.0-15.0); Immature Granulocytes Count 0.050 X10^3/uL (0.0-0.0); Mean Corp Hgb Conc 33.2 g/dL (32-36); Mean Corpuscular Volume 97.0 fL (81-99); Mean Platelet Vol. 12.7 fl (6.2-12.0); NRBC Flagged by Analyzer 0 % (0-5); Platelet Count 145 K/mm3 (150-450); RBC Distribution Width CV 14.1 % (11.6-14.6); RBC Distribution Width SD 50.5 fl (35.1-43.9); Red Blood Count 4.29 M/mm3 (4.2-5.4); White Blood Count 7.2 K/mm3 (4.4-11.0)
[2025-03-06 15:26] LABS: Mucous, Urine 0 SEEN /hpf (<or=2+); Red Blood Cells-Urine 0 SEEN /hpf (0-5)
[2025-03-06 15:32] LABS: Partial Thromboplast Time 32.3 Seconds (24.1-36.2); Prothrombin Time (Protime)PT. 13.0 SECONDS (11.7-14.9)
--- NOTE | 2025-03-06 15:36 | RAD_ITS ---
PROCEDURE: CHEST 1 VIEW (PORTABLE) 03/06/2025 REASON FOR EXAM: CONFUSION TECHNIQUE: Frontal view of the chest. COMPARISON: 05/22/2022. FINDINGS: The heart is normal in size. The lungs are clear. No acute osseous abnormalities. RAD/Chest 1 View (Portable) IMPRESSION: No acute cardiopulmonary abnormalities. [facility]
[2025-03-06 15:41] LABS: Glucose, Dipstick Normal (Normal); Ketone-Dipstick Negative (Negative); Leukocyte Esterase-Dipstick 25 /ul (Negative); Nitrite-Dipstick Negative (Negative); Occult Blood-Urine 10 /ul (Negative); Protein-Dipstick 30 mg/dl (Negative); Specific Gravity, Urine 1.010 (1.002-1.030); Urine Bilirubin Dipstick Negative (Negative)
[2025-03-06 15:42] LABS: Color, Urine Yellow (Yellow)
[2025-03-06] MEDS: 0.9% Normal Saline (500mL Bag) 500 ML 999 ML IV (15:46)
[2025-03-06 15:50] LABS: AST(SGOT) 128 U/L (<=31); Alanine Aminotransfer ALT/SGPT 50 U/L (<=34); Albumin, Serum 3.2 g/dL (3.4-4.8); Alkaline Phosphatase 216 U/L (35-104); Anion Gap 11 (7-18); BUN 13 mg/dL (4-19); BUN/Creat Ratio 11.4 RATIO (10-20); Calcium,Total 9.1 mg/dL (7.6-11.0); Carbon Dioxide 29.5 mmol/L (20.0-29.0); Chloride 100 mmol/L (96-106); Estimated Creatinine Clearance 35.14 ml/min (50-250); Globulin 3.5 g/dL (2.2-4.2); Glucose 118 mg/dL (70-99); Potassium 3.5 mmol/L (3.5-5.1)
[2025-03-06 15:56] LABS: Squamous Epithelial Cells - UA 0-5 SEEN /hpf (5-10)
--- NOTE | 2025-03-06 16:15 | ED.RN ---
Critical result of flu A received from lab. Dr. Ferreira and patient notified.
--- NOTE | 2025-03-06 18:49 | EKG12_ITS ---
Test Reason : DYSRHYTHMIA Blood Pressure : */* mmHG Vent. Rate : 73 BPM Atrial Rate : 73 BPM P-R Int : 200 ms QRS Dur : 76 ms QT Int : 406 ms P-R-T Axes : 77 -3 59 degrees QTcB Int : 447 ms Sinus rhythm with occasional Premature ventricular complexes Otherwise normal ECG Confirmed by Sky Carney ([id number]), news copy editor BRIAN CASTRO ([id number]) on 03/07/2025 10:55:02 AM Also confirmed by Sky Carney ([id number]), news copy editor BRIAN CASTRO ([id number]) on 03/08/2025 11:00:30 AM Referred By: TONIA Confirmed By: Sky Carney
--- NOTE | 2025-03-06 19:47 | ED.RN ---
Daughter given update over the phone.
== END 2025-03-06 20:18 | disposition home or self-care (01) ==
PROVIDERS: Emergency Provider Emergency Medicine; PCP Internal Medicine; Visit Provider Emergency Medicine
DX: J10.1 Influenza due to other identified influenza virus with other respiratory manifestations (principal); I48.91 Unspecified atrial fibrillation; R40.4 Transient alteration of awareness; I10 Essential (primary) hypertension; Z79.899 Other long term (current) drug therapy
CPT/HCPCS: 70450; 71045; 80053; 81001; 83605; 85025; 85610; 85730; 87040; 87086; 87088; 87631; 93005; 96361; 96374; 99285; A4216